=== PATIENT | male | born 1980 | race Caucasian/White ===

== ENCOUNTER 2019-03-10 16:09 | Emergency (ER) | payer OTHER ==
[~2019-03-10] VITALS: Ht 193 cm; Wt 113.4 kg
[2019-03-10] MEDS ORDERED: HYDROCODONE/APAP 10MG-325MG TAB PO ONE (16:30)
[2019-03-10] MEDS ORDERED: KETOROLAC TROMETHAMINE 60 MG/2 ML VIAL IM ONE (16:30)
--- NOTE | 2019-03-10 16:36 | NUR ---
incision and drainage performed by cirilo barnett
[2019-03-10 16:42] VITALS: BP 155/96
== END 2019-03-10 16:46 | disposition home or self-care (01) ==
LOC: ER 16:09
DX: K04.7 Periapical abscess without sinus (principal); K02.9 Dental caries, unspecified
CPT/HCPCS: 41800; 99283; J1885